=== PATIENT | male | born 1955 | race Caucasian/White ===

== ENCOUNTER 2018-10-06 14:26 | Outpatient (CLI) | payer MEDICARE, OTHER ==
[2018-10-06] MEDS ORDERED: ATOR20TA37 PO (15:04)
[2018-10-06] MEDS ORDERED: TIOT18CA INH (15:04)
[2018-10-06] MEDS ORDERED: TAMS-11 PO (15:04)
[2018-10-06] MEDS ORDERED: AMLO10TA8 PO (15:04)
[2018-10-06] MEDS ORDERED: BUDE10.2 INH (15:04)
[2018-10-06] MEDS ORDERED: SODI126M NS (15:04)
[2018-10-06] MEDS ORDERED: FLUT9.9S NS (15:04)
[2018-10-06] MEDS ORDERED: ALBU90AE INH (15:04)
[2018-10-06] MEDS ORDERED: MULT-717 PO (15:04)
[2018-10-06 15:29] LABS: BASOPHILS # (AUTO) 0.03 x10^3/uL (0-0.1); BASOPHILS % (AUTO) 1 % (0-1); EOSINOPHILS # (AUTO) 0.32 x10^3/uL (0-0.4); EOSINOPHILS % (AUTO) 5 % (1-7); LYMPHOCYTES # (AUTO) 0.96 x10^3/uL (1-3.4); LYMPHOCYTES % (AUTO) 16 % (22-44); MD NO; MEAN CORPUSCULAR HEMOGLOBIN 32.1 pg (27.5-34.5); MEAN CORPUSCULAR HGB CONC 32.6 g/dL (33.2-36.2); MEAN CORPUSCULAR VOLUME 98.5 fL (81-97); MEAN PLATELET VOLUME 7.4 fL (7.4-10.4); MONOCYTES # (AUTO) 0.63 x10^3/uL (0.2-0.8); MONOCYTES % (AUTO) 10 % (2-9); NEUTROPHILS # (AUTO) 4.14 x10^3/uL (1.8-6.8); NEUTROPHILS % (AUTO) 68 % (42-75); PLATELET COUNT 231 x10^3/uL (130-400); RED CELL DISTRIBUTION WIDTH 16.7 % (9.4-14.8)
[2018-10-06 15:39] LABS: CHLORIDE 106 mmol/L (98-107)
[2018-10-06 15:49] LABS: ALANINE AMINOTRANSFERASE 45 U/L (12-78); ALKALINE PHOSPHATASE 98 U/L (45-117); ANION GAP 7 mmol/L (5-15); BILIRUBIN,TOTAL 0.6 mg/dL (0.2-1.0); CALCIUM 7.8 mg/dL (8.5-10.1); CREATININE 1.66 mg/dL (0.7-1.3); TOTAL PROTEIN 7.7 g/dL (6.4-8.2)
[2018-10-06 16:07] LABS: INTERNATIONAL NORMALIZED RATIO 1.01 (0.93-1.1); PROTHROMBIN TIME 10.6 Seconds (9.6-11.5)
== END 2018-10-06 23:59 | disposition home or self-care (01) ==
LOC: EDBD → STAR 14:26
PROVIDERS: ATTEND Surgery
DX: Z01.818 Encounter for other preprocedural examination (principal)
CPT/HCPCS: 36415; 80053; 85025; 85610; 93005

== ENCOUNTER 2018-10-10 10:23 | Day surgery (SDC) | payer MEDICARE, OTHER ==
[~2018-10-10] VITALS: Ht 170.2 cm; Wt 59.0 kg
[~2018-10-10 10:23] MED LIST: ALBU90AE INH; AMLO10TA8 PO; ATOR20TA37 PO; BUDE10.2 INH; BUPIVACAINE/PF 0.5% ONE; EPINEPHRINE 1 MG/ML, 1ML ONE; FLUT9.9S NS; MULT-717 PO; SODI126M NS; TAMS-11 PO; TIOT18CA INH
[2018-10-10] MEDS ORDERED: LACTATED RINGERS 1,000 ML IV SCH (10:58)
[2018-10-10] MEDS ORDERED: MIDAZOLAM 1 MG/ML, 2ML ONE (11:25)
[2018-10-10] MEDS ORDERED: FENTANYL PF 250 MCG/5ML ONE (11:26)
[2018-10-10] MEDS ORDERED: ACETAMINOPHEN 500 MG TABLET PO ONE (11:30)
[2018-10-10] MEDS ORDERED: GABAPENTIN 300 MG CAPSULE PO ONE (11:30)
[2018-10-10] MEDS ORDERED: FENTANYL PF 100 MCG/2ML IV PRN (12:30)
[2018-10-10] MEDS ORDERED: hydrALAzine 20 MG/ML, 1ML IV PRN (12:30)
[2018-10-10] MEDS ORDERED: ONDANSETRON 2MG/ML, 2ML IV PRN (12:30)
[2018-10-10] MEDS ORDERED: HYDROmorphone 2 MG/ML, 1ML IVPush PRN (12:30)
[2018-10-10] MEDS ORDERED: PROMETHAZINE 25 MG/ML, 1ML IV PRN (12:30)
[2018-10-10] MEDS ORDERED: MEPERIDINE/PF 25MG/0.5ML IVPush PRN (12:30)
[2018-10-10] MEDS ORDERED: MIDAZOLAM 1 MG/ML, 2ML IV PRN (12:30)
[2018-10-10] MEDS ORDERED: ALBUTEROL/IPRATROPIUM 2.5MG/0.5MG, 3 ML NPPB PRN (12:30)
[2018-10-10] MEDS ORDERED: METOPROLOL 1 MG/ML, 5ML IV PRN (12:30)
[2018-10-10] MEDS ORDERED: OXYcodone 5 MG/5 ML ORAL.SOL UDC PO PRN (12:30)
[2018-10-10] MEDS ORDERED: ONDANSETRON 2MG/ML, 2ML ONE (12:35)
[2018-10-10] MEDS ORDERED: CEFAZOLIN 1,000 MG ONE (12:35)
[2018-10-10] MEDS ORDERED: PROPOFOL 10 MG/ML, 20ML ONE (12:35)
[2018-10-10] MEDS ORDERED: EPHEDRINE 50 MG/ML, 1ML ONE (12:35)
[2018-10-10] MEDS ORDERED: DEXAMETHASONE 4 MG/ML, 1ML ONE (12:35)
[2018-10-10] MEDS ORDERED: VASOPRESSIN 20 UNIT/ML, 1ML ONE (16:10)
[2018-10-10] MEDS ORDERED: PHENYLEPHRINE 10 MG/ML ONE (16:10)
== END 2018-10-10 16:20 | disposition home or self-care (01) ==
LOC: OUT 10:23 → EDBD 12:30 → OUT 16:20
PROVIDERS: ATTEND Surgery
DX: C44.719 Basal cell carcinoma of skin of left lower limb, including hip (principal); J44.9 Chronic obstructive pulmonary disease, unspecified; I12.9 Hypertensive chronic kidney disease with stage 1 through stage 4 chronic kidney disease, or unspecified chronic kidney disease; N18.3 Chronic kidney disease, stage 3 (moderate); E78.5 Hyperlipidemia, unspecified; N40.0 Benign prostatic hyperplasia without lower urinary tract symptoms; Z72.89 Other problems related to lifestyle; Z99.81 Dependence on supplemental oxygen; Z87.891 Personal history of nicotine dependence; Z79.899 Other long term (current) drug therapy; Z96.641 Presence of right artificial hip joint; Z98.890 Other specified postprocedural states
CPT/HCPCS: 11606; 15220; 88305; J0171; J0690; J1100; J2250; J2370; J2405; J2704; J3010; J7120

== ENCOUNTER 2020-08-02 01:26 | Emergency (ER) | payer MEDICARE, MEDICAID ==
[~2020-08-02] VITALS: Ht 172.7 cm; Wt 69.9 kg
[~2020-08-02 01:26] MED LIST changes: +AMLO-211 PO; -AMLO10TA8 PO; -BUPIVACAINE/PF 0.5% ONE; -EPINEPHRINE 1 MG/ML, 1ML ONE
[2020-08-02] MEDS ORDERED: ONDANSETRON 2MG/ML, 2ML IVPush ONE (02:00)
[2020-08-02] MEDS ORDERED: MORPHINE SULFATE 4 MG/ML, 1ML IV PRN (02:00)
[2020-08-02] MEDS ORDERED: DIPH,PERTUSS(ACELL),TET VAC/PF 0.5 ML IM-VACC ONE ×2 (02:00→02:19)
[2020-08-02] MEDS ORDERED: SODIUM CHLORIDE FLUSH 10ML SYR IVF ONE (02:00)
[2020-08-02 02:15] LABS: BASOPHILS % (AUTO) 1 % (0-1); EOSINOPHILS % (AUTO) 4 % (1-7); LYMPHOCYTES % (AUTO) 10 % (22-44); MEAN CORPUSCULAR HEMOGLOBIN 32.8 pg (27.5-34.5); MEAN CORPUSCULAR HGB CONC 33.8 g/dL (33.2-36.2); MEAN PLATELET VOLUME 7.4 fL (7.4-10.4); MONOCYTES % (AUTO) 8 % (2-9); NEUTROPHILS % (AUTO) 77 % (42-75); PLATELET COUNT 236 x10^3/uL (130-400); RED BLOOD COUNT 4.49 x10^6/uL (4.38-5.82); RED CELL DISTRIBUTION WIDTH 15.1 % (9.4-14.8)
[2020-08-02] MEDS ORDERED: ONDANSETRON 2MG/ML, 2ML ONE (02:19)
[2020-08-02] MEDS ORDERED: MORPHINE SULFATE 4 MG/ML, 1ML ONE (02:19)
[2020-08-02 02:25] LABS: ALBUMIN 3.8 g/dL (3.4-5.0); ANION GAP 5 mmol/L (5-15); CALCIUM 7.8 mg/dL (8.5-10.1); CHLORIDE 103 mmol/L (98-107); CREATININE 1.55 mg/dL (0.7-1.3)
[2020-08-02 02:27] LABS: MD NO
[2020-08-02] MEDS ORDERED: NEOSPORIN OINT. PKT 1 PACKET ONE (03:58)
[2020-08-02] MEDS ORDERED: BACITRACIN ZINC OINT 500U/GM, 0.9 GM TP ONE (04:00)
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
[2020-08-02 04:49] VITALS: BP 150/87
== END 2020-08-02 04:52 | disposition home or self-care (01) ==
LOC: ED 04:42
DX: T20.24XA Burn of second degree of nose (septum), initial encounter (principal); T20.16XA Burn of first degree of forehead and cheek, initial encounter; T31.0 Burns involving less than 10% of body surface; J44.9 Chronic obstructive pulmonary disease, unspecified; I10 Essential (primary) hypertension; Z87.891 Personal history of nicotine dependence
CPT/HCPCS: 36415; 71045; 80048; 82040; 85025; 90471; 90715; 96374; 96375; 99284; J2270; J2405